=== PATIENT | female | born 1950 | race Hispanic/Latino ===

== ENCOUNTER 2017-06-30 16:00 | Outpatient (CLI) | payer OTHER | END 2017-06-30 16:01 | disposition home or self-care (01) | LOC: BICRAD 16:00 | PROVIDERS: ATTEND Internal Medicine | DX: J45.50 Severe persistent asthma, uncomplicated (principal) | CPT/HCPCS: 71046 ==

== ENCOUNTER 2017-07-03 12:20 | Inpatient (IN) | payer SELFPAY ==
[2017-07-03 13:36] LABS: #Eosinphils 0.3 thou/uL (0.0-0.7); #Lymphocytes 1.3 thou/uL (1.20-3.40); #Monocytes 0.7 thou/uL (0.11-0.59); #Neutrophils 4.7 thou/uL (1.40-6.50); %Basophils 0.6 % (0.0-1.0); %Eosinophils 4.3 % (0.0-10.0); %Monocytes 9.6 % (0.0-10.0); %Neutrophils 67.4 % (42.0-75.0); Hemoglobin 12.8 g/dL (12.0-16.0); Mean Corpuscular HGB CONC 34.4 g/dL (32.0-36.0); Mean Corpuscular Hemoglobin 31.8 pg (27.0-31.0); Mean Corpuscular Volume 92.6 fl (81.0-99.0); Mean Platelet Volume 7.2 fL (7.4-10.4); Platelet Count 222 thou/uL (130-400); RBC Distribution Width 13.6 % (11.5-14.5); Red Blood Cell (RBC) Count 4.02 mill/uL (4.20-5.40)
[2017-07-03 13:58] LABS: Troponin I Less than 0.010 ng/mL (< 0.028)
--- NOTE | 2017-07-03 14:04 | RAD ---
PORTABLE CHEST 1 VIEW: Date: 07/03/17 Time: 1349 hours HISTORY: Cough. FINDINGS: Comparison made with exam of 10/12/13. The heart is enlarged. Chronic changes are again seen. Lungs are expanded without lobar consolidation , pneumothoraces, lynne pulmonary edema, or pleural effusions. There is an old fracture of the right humerus. IMPRESSION: No acute process. POS: [facility]
[2017-07-03 14:08] LABS: ALT (SGPT) 9 U/L (8-55); AST (SGOT) 18 U/L (5-34); Albumin 4.1 g/dL (3.4-4.8); Alkaline Phosphatase 124 U/L (40-150); Anion Gap 11 mmol/L (10-20); BUN (Urea Nitrogen) 19 mg/dL (9.8-20.1); Bilirubin, Total 0.3 mg/dL (0.2-1.2); Calc. Creatinine Clearance 0 mL/min (70-130); Calcium 9.4 mg/dL (7.8-10.44); Carbon Dioxide 28 mmol/L (23-31); Chloride 98 mmol/L (98-107); Estimated GFR-MDRD 69; Globulin 3.2 g/dL (2.4-3.5); Glucose 118 mg/dL (80-115); Potassium 4.2 mmol/L (3.5-5.1); Protein, Total 7.3 g/dL (6.0-8.3); Sodium 133 mmol/L (136-145)
[2017-07-03 14:20] LABS: CK (CPK) 33 U/L (29-168)
[2017-07-03] MEDS ORDERED: Furosemide 40 MG/4 ML VIAL ONE (15:02)
--- NOTE | 2017-07-03 15:45 | HP ---
PRIMARY CARE PHYSICIAN: [facility]. REASON FOR ADMISSION: Sent from [facility] for evaluation of dyspnea. HISTORY OF PRESENT ILLNESS: A 67-year-old female who has history of nonischemic cardiomyopathy who was experiencing increasing shortness of breath and cough. The patient is Yoruba speaking only and patient's daughter who speaks Albanian, who helped me to get history from her. She reports that patient was given empiric antibiotic therapy and Augmentin for presumed pneumonia for her increasing shortness of breath and cough. She did not have any recent upper respiratory infections. She was not having any fever or chills , but she was having cough and shortness of breath on lying down position. She denies any PND. She has mild increasing lower extremity pitting edema and she has nonproductive cough which is not improving with antibiotic therapy. Patient was referred for chest x-ray and subsequently primary care physician told her to go to emergency room for possible fluid in her lungs. Today in the emergency room, she is hypertensive. She is saturating normal on room air and her chest x-ray is unremarkable. Her routine blood test is also unremarkable. Patient is being admitted for mild congestive heart failure exacerbation versus atypical infection. Today in the emergency room, her BNP is also significantly elevated. She denies any pleuritic chest pain. She denies any fever or chills. She denies any hemoptysis. She denies any UTI symptoms. She denies any constipation, diarrhea, melena or hematochezia. PAST MEDICAL HISTORY: Nonischemic cardiomyopathy, hypertension, dyslipidemia, gastroesophageal reflux disease, osteoarthritis, rheumatoid arthritis. PAST SURGICAL HISTORY: Cardiac catheterization in 2014 and bilateral hip replacement. PAST PSYCHIATRIC HISTORY: Reviewed and negative. ALLERGIES: No known drug allergy. CURRENT HOME MEDICATIONS: Bumex 1 mg p.o. daily, Coenzyme Q10 100 mg p.o. daily , Protonix 40 mg p.o. daily, Coreg 25 mg twice daily, Tylenol #3 one tablet q.8 hourly p.r.n., potassium chloride 20 mEq p.o. daily, Imdur 60 mg p.o. daily, Augmentin 875 mg twice daily which was recently prescribed by primary care physician. REVIEW OF SYSTEMS: The following complete review of systems was negative, unless otherwise mentioned in the HPI or below: Constitutional: Weight loss or gain, ability to conduct usual activities. Skin: Rash, itching. Eyes: Double vision, pain. ENT/Mouth: Nose bleeding, neck stiffness, pain, tenderness. Cardiovascular: Palpitations, dyspnea on exertion, orthopnea. Respiratory: Shortness of breath, wheezing, cough, hemoptysis, fever or night sweats. Gastrointestinal: Poor appetite, abdominal pain, heartburn, nausea, vomiting, constipation, or diarrhea. Genitourinary: Urgency, frequency, dysuria, nocturia. Musculoskeletal: Pain, swelling. Neurologic/Psychiatric: Anxiety, depression. Allergy/Immunologic: Skin rash, bleeding tendency. Please see my HPI for pertinent positive and negative. All other review of systems reviewed and negative except as mentioned in the HPI. SOCIAL HISTORY: The patient lives at home with family. No history of tobacco, alcohol or illicit drug abuse. FAMILY HISTORY: No strong family history of premature coronary artery disease, stroke or cancer. EMERGENCY ROOM COURSE: Patient is given Lasix 40 mg. PHYSICAL EXAMINATION: VITAL SIGNS: On arrival, blood pressure 180/51, pulse 79, respiratory rate 20, temperature 98.4, saturation 95% on room air, and weight 52.2 kilograms. GENERAL: Patient is currently alert, awake, hypertensive, no obvious acute distress. HEAD: Normocephalic, atraumatic. EYES: Pupils round, reactive to light. Extraocular muscle intact. ENT: Oropharynx within normal limits. Moist mucous membrane, no oral lesion, no pharyngeal erythema, no exudate. NECK: Supple. Mild elevated JVD noted. No meningeal signs of irritation, no carotid bruit. LUNGS: Bibasilar few rales noted. Few end expiratory wheezing heard. CARDIAC: S1, S2 regular, soft systolic murmur noted at apex. Bilateral lower extremity edema noted. HEART: Regular rhythm. ABDOMEN: Soft, bowel sounds present, nontender, and nondistended. No organomegaly, no mass, no suprapubic tenderness. BACK: Examination unremarkable, no CVA tenderness. EXTREMITIES: Upper extremity passive movements of all joints are normal. Lower extremity, true pitting edema noted. Good distal pulsation. SKIN: No skin rash. HEMATOLOGICAL SYSTEM: No lymphadenopathy. PSYCHIATRIC: Normal affect. NEUROLOGIC: Nonfocal examination. IMAGING DATA AND SIGNIFICANT LABORATORY DATA: 1. EKG showing LVH pattern. 2. Chest x-ray based on my review reported as no acute cardiopulmonary process , cardiomegaly. 3. CBC: WBC 7.2, hemoglobin 12.8, platelets 222. 4. BMP: Sodium 133, potassium 4.2, chloride 98, carbon dioxide 28, BUN 19, creatinine 0.82, glucose 118, calcium 9.4. 5. LFT: AST 18, ALT 9, alkaline phosphatase is 124, albumin 4.0. CK 33, CK- MB 1.0, troponin I less than 0.010, BNP 618.0. ASSESSMENT AND PLAN/IMPRESSION: 1. Acute on chronic congestive heart failure exacerbation, diastolic as well as systolic. Patient's last echocardiography was in 2013. She had negative ischemic workup at that time. We will repeat echocardiography during this admission. We will treat her with Zaroxolyn 5 mg p.o. daily as well as Lasix 40 mg IV b.i.d. We will do serial cardiac enzymes to rule out any underlying acute coronary syndrome. Based on clinical history, patient has mild systolic and diastolic heart failure exacerbation. We will continue Coreg 25 mg p.o. b.i.d., lisinopril 5 mg p.o. b.i.d., and Imdur 60 mg p.o. daily. Fluid restriction 1500 mL per day. We will control better blood pressure during this admission. For benefit of doubt, we will also check for any viral infection. 2. Hypertension, uncontrolled. Continue Lasix, Coreg 25 mg twice daily, lisinopril 5 mg p.o. b.i.d. and Imdur 60 mg p.o. daily. We will adjust blood pressure medication during this admission 3. Gastroesophageal reflux disease. Continue Protonix 40 mg p.o. daily. 4. Osteoarthritis/rheumatoid arthritis with joint deformity. The patient needs symptomatic treatment. 5. Mild hyponatremia, likely related with underlying congestive heart failure. 6. Dyslipidemia. We will check lipid profile tomorrow and start pravastatin 20 mg p.o. at bedtime. 7. Deep venous thrombosis prophylaxis not needed because we are expecting discharge in 24 hours. 8. Gastrointestinal prophylaxis, Protonix 40 mg p.o. daily. 9. Moderate mitral, tricuspid and aortic regurgitation based on previous echo, will need to repeat echo this time. CODE STATUS: The patient is FULL CODE. The patient's daughter is surrogate decision maker. Disposition plan based on clinical course. Plan of care discussed with the patient and family member at bedside in the emergency room. MAIA
[2017-07-03] MEDS ORDERED: Ondansetron ODT 4 MG TAB SL PRN (16:28)
[2017-07-03] MEDS ORDERED: hydrALAZINE 20 MG/ML VIAL SLOW IVP PRN ×2 (16:28→16:57)
[2017-07-03] MEDS ORDERED: Ondansetron HCl/PF 4 MG/2 ML Vial IVP PRN ×2 (16:28→16:57)
[2017-07-03] MEDS ORDERED: Acetaminophen 325 MG TAB PO PRN (16:57)
[2017-07-03] MEDS ORDERED: Ondansetron ODT 4 MG TAB PO PRN (16:57)
[2017-07-03] MEDS ORDERED: Nitroglycerin 0.4 MG TAB (25 Tab Bottle) SL PRN (16:57)
[2017-07-03] MEDS ORDERED: Milk Of Magnesia 30 ML UDCUP PO PRN (16:57)
[2017-07-03] MEDS ORDERED: Loperamide HCl 2 MG CAP PO PRN (16:57)
[2017-07-03] MEDS ORDERED: Eucerin (Mineral Oil/Petrolatum,White) 30 gm Jar TOP PRN (16:57)
[2017-07-03] MEDS ORDERED: Chloraseptic Spray 180 ml Bottle PO PRN (16:57)
[2017-07-03] MEDS ORDERED: Loratadine 10 MG TAB PO PRN (16:57)
[2017-07-03] MEDS ORDERED: HYDROcodone/Acetaminophen 5/325 mg Tablet PO PRN (16:57)
[2017-07-03] MEDS ORDERED: Zolpidem Tartrate 5 MG TAB PO PRN (16:57)
[2017-07-03] MEDS ORDERED: Sodium Chloride 0.65% Nasal 44 ML BOT EA NARE PRN (16:57)
[2017-07-03] MEDS ORDERED: Mag-Al 1200 mg/1200 mg/30 ML UDCUP PO PRN (16:57)
[2017-07-03] MEDS ORDERED: Artificial Tears 18 DROP/0.9 ML EA EYE PRN (16:57)
[2017-07-03] MEDS ORDERED: Senokot 8.6 MG TAB PO PRN (16:57)
[2017-07-03] MEDS ORDERED: Metolazone 5 MG TAB PO SCH (17:15)
[2017-07-03 17:23] LABS: Troponin I 0.017 ng/mL (< 0.028)
[2017-07-03 20:36] LABS: Bilirubin Negative (Negative); Blood, Urine Trace (Negative); Clarity CLEAR (Clear); Glucose, Urine (Dipstick) Negative (Negative); Leukocyte Negative (Negative); Nitrite Negative (Negative); Protein, Urine (Dipstick) Negative (Neg-Trace); Specific Gravity, Urine 1.006 (1.002-1.036); Urobilinogen 0.2 mg/dL (0.2-1.0); pH, Urine 6.5 (5.0-9.0)
[2017-07-03 20:38] LABS: Bacteria/HPF None Seen HPF (None Seen); Hyaline Casts/LPF 0-3 HYALINE CAST LPF (0-3 Hyaline); RBC/HPF 0-3 HPF (0-3); Squamous Epithelial None Seen HPF (0-3); WBC/HPF None Seen HPF (0-3)
[2017-07-03] MEDS ORDERED: Furosemide 40 MG/4 ML VIAL SLOW IVP SCH (21:00)
[2017-07-03 21:10] LABS: Troponin I 0.048 ng/mL (< 0.028)
[2017-07-03] MEDS: Amoxicillin/Potassium Clav 875 MG TAB PO SCH (21:15)
[2017-07-03] MEDS: Pravastatin Sodium 20 MG TAB PO SCH (21:15)
[2017-07-03] MEDS: Lisinopril 5 MG TAB PO SCH (21:15)
[2017-07-03] MEDS: Carvedilol 25 MG TAB PO SCH (21:16)
[2017-07-04 05:48] LABS: #Basophils 0.1 thou/uL (0.0-0.2); #Eosinphils 0.2 thou/uL (0.0-0.7); #Lymphocytes 1.1 thou/uL (1.20-3.40); #Monocytes 0.5 thou/uL (0.11-0.59); #Neutrophils 6.2 thou/uL (1.40-6.50); %Basophils 0.7 % (0.0-1.0); %Eosinophils 2.7 % (0.0-10.0); %Lymphocytes 13.3 % (21.0-51.0); %Monocytes 6.4 % (0.0-10.0); Mean Corpuscular HGB CONC 33.5 g/dL (32.0-36.0); Mean Corpuscular Hemoglobin 30.9 pg (27.0-31.0); Mean Corpuscular Volume 92.2 fl (81.0-99.0); Mean Platelet Volume 7.4 fL (7.4-10.4); Platelet Count 215 thou/uL (130-400); RBC Distribution Width 13.7 % (11.5-14.5); Red Blood Cell (RBC) Count 3.88 mill/uL (4.20-5.40)
[2017-07-04] MEDS ORDERED: Furosemide 40 MG/4 ML VIAL SLOW IVP SCH ×2 (06:00→06:33)
[2017-07-04 06:04] LABS: Anion Gap 13 mmol/L (10-20); BUN (Urea Nitrogen) 27 mg/dL (9.8-20.1); Calc. Creatinine Clearance 52 mL/min (70-130); Calcium 9.2 mg/dL (7.8-10.44); Carbon Dioxide 26 mmol/L (23-31); Cardiac Risk 4.8 (Less than 4.5); Chloride 97 mmol/L (98-107); Cholesterol 187 mg/dl (< 200 Desired); Estimated GFR-MDRD 66; Glucose 125 mg/dL (80-115); HDL Cholesterol 39 mg/dL (>60 Neg Risk); LDL Cholesterol, Calculated 131 mg/dL; Magnesium 1.8 mg/dL (1.6-2.6); Potassium 3.4 mmol/L (3.5-5.1); Sodium 133 mmol/L (136-145); Triglycerides 86 mg/dL (Less than 150); Uric Acid 7.6 mg/dL (2.6-6.0)
[2017-07-04] MEDS ORDERED: Potassium Chloride 20 MEQ TAB PO SCH (06:45)
[2017-07-04] MEDS ORDERED: Furosemide 20 MG/2 ML VIAL SLOW IVP SCH (06:45)
[2017-07-04] MEDS ORDERED: Metolazone 5 MG TAB PO SCH (08:30)
[2017-07-04] MEDS: Leflunomide 10 mg Tablet PO SCH (08:55)
[2017-07-04] MEDS: Saccharomyces boulardii 250 MG CAP PO SCH (08:55)
[2017-07-04] MEDS: Amoxicillin/Potassium Clav 875 MG TAB PO SCH ×2 (08:55→20:24)
[2017-07-04] MEDS: Ubidecarenone 50 MG CAP PO SCH (08:55)
[2017-07-04] MEDS: Aspirin 325 MG TAB PO SCH (08:55)
[2017-07-04] MEDS: Lisinopril 5 MG TAB PO SCH ×2 (08:56→20:25)
[2017-07-04] MEDS: Metolazone 2.5 MG TAB PO SCH (08:56)
[2017-07-04] MEDS: Carvedilol 25 MG TAB PO SCH ×2 (08:57→20:25)
[2017-07-04] MEDS ORDERED: Enoxaparin Sodium 30 MG/0.3 ML SYRINGE SC SCH (09:00)
--- NOTE | 2017-07-04 09:43 | PDOC.PN ---
- Subjective Encounter Start Date: 07/04/17 Encounter Start Time: 07:20 -: old records requested/rev Patient seen and examined for CHF. No new complaints. No overnight events - Objective Resuscitation Status: Resuscitation Status FULL:Full Resuscitation MAR Reviewed: Yes Vital Signs & Weight: Vital Signs (12 hours) Temp Pulse Resp BP Pulse Ox 07/04/17 08:00 98.2 F 75 16 127/59 L 92 L 07/04/17 07:27 97 07/04/17 04:00 98.4 F 80 18 141/65 H 95 07/04/17 00:14 80 07/04/17 00:00 98.4 F 72 20 185/81 H 96 Weight Weight 116 lb 14.4 oz I&O: 07/03/17 07/04/17 07/05/17 06:59 06:59 06:59 Intake Total 100 Output Total 0 Balance 100 Result Diagrams: 07/04/17 05:00 07/04/17 05:00 EKG Reviewed by me: Yes Phys Exam - Physical Examination Constitutional: NAD HEENT: PERRLA, moist MMs, sclera anicteric Neck: no JVD, supple Respiratory: no wheezing, no rhonchi few basal rales Cardiovascular: RRR, no rub SM+ Gastrointestinal: soft, non-tender, no distention, positive bowel sounds Musculoskeletal: no edema, pulses present Neurological: non-focal, normal sensation Lymphatic: no nodes Psychiatric: normal affect, A&O x 3 Skin: no rash, normal turgor Dx/Plan (1) Acute on chronic combined systolic and diastolic ACC/AHA stage C congestive heart failure Code(s): I50.43 - ACUTE ON CHRONIC COMBINED SYSTOLIC AND DIASTOLIC HRT FAIL Status: Acute (2) Hyponatremia Code(s): E87.1 - HYPO-OSMOLALITY AND HYPONATREMIA Status: Acute (3) Hypokalemia Code(s): E87.6 - HYPOKALEMIA Status: Acute (4) Hypertension Code(s): I10 - ESSENTIAL (PRIMARY) HYPERTENSION Status: Chronic (5) Dyslipidemia Code(s): E78.5 - HYPERLIPIDEMIA, UNSPECIFIED Status: Chronic - Plan cont current plan of care, plan discussed w/ family * echocardiography * will reduce diuresis today with lasix 20 mg iv bid and zaroxolyn 2.5 mg po daily * medication reviewed as below * symptomatic treatment * will adjust medication today * expecting discharge tomorrow. Review of Systems - Review of Systems Constitutional: negative: fever, chills, sweats, weakness, malaise, other Eyes: negative: Pain, Vision Change, Conjunctivae Inflammation, Eyelid Inflammation, Redness, Other ENT: negative: Ear Pain, Ear Discharge, Nose Pain, Nose Discharge, Nose Congestion, Mouth Pain, Mouth Swelling, Throat Pain, Throat Swelling, Other Respiratory: Cough, SOB with Excertion. negative: Dry, Shortness of Breath, Hemoptysis, Pleuritic Pain, Sputum, Wheezing Cardiovascular: negative: chest pain, palpitations, orthopnea, paroxysmal nocturnal dyspnea, edema, light headedness, other Gastrointestinal: negative: Nausea, Vomiting, Abdominal Pain, Diarrhea, Constipation, Melena, Hematochezia, Other Genitourinary: negative: Dysuria, Frequency, Incontinence, Hematuria, Retention , Other Musculoskeletal: negative: Neck Pain, Shoulder Pain, Arm Pain, Back Pain, Hand Pain, Leg Pain, Foot Pain, Other Skin: negative: Rash, Lesions, Jeremi, Bruising, Other Neurological: negative: Weakness, Numbness, Incoordination, Change in Speech, Confusion, Seizures, Other - Medications/Allergies Allergies/Adverse Reactions: Allergies Allergy/AdvReac Type Severity Reaction Status Date / Time No Known Allergies Allergy Verified 10/13/13 02:34 Medications: Current Medications Acetaminophen (Tylenol) 650 mg PO Q4H PRN PRN Reason: Headache/Fever or Pain Hydrocodone Bitart/Acetaminophen ([place] 5/325) 1 tab PO Q4H PRN PRN Reason: Moderate Pain (4-6) Al Hydroxide/Mg Hydroxide (Maalox) 30 ml PO Q6H PRN PRN Reason: Heartburn or Indigestion Albuterol/Ipratropium (Duoneb) 3 ml NEB [id number] PRN PRN Reason: SOB &/or Wheezing Amoxicillin/Clavulanate Potassium (Augmentin) 875 mg PO Q12HR [facility] Last Admin: 07/04/17 08:55 Dose: 875 mg Artificial Tears (Tears Naturale) 0 drop EA EYE PRN PRN PRN Reason: Dry Eyes Aspirin (Aspirin) 325 mg PO DAILY [facility] Last Admin: 07/04/17 08:55 Dose: 325 mg Carvedilol (Coreg) 25 mg PO BID [facility] Last Admin: 07/04/17 08:57 Dose: 25 mg Coenzyme Q10 (Coenzyme Q10) 100 mg PO DAILY [facility] Last Admin: 07/04/17 08:55 Dose: 100 mg Enoxaparin Sodium (Lovenox) 30 mg SC 0900 [facility] Last Admin: 07/04/17 08:58 Dose: 30 mg Furosemide (Lasix) 20 mg SLOW IVP 0600,1400 [facility] Guaifenesin (Robitussin Sf) 200 mg PO Q4H PRN PRN Reason: Cough Hydralazine HCl (Apresoline) 10 mg SLOW IVP Q4H PRN PRN Reason: Systolic BP > 180 Last Admin: 07/04/17 00:14 Dose: 10 mg Isosorbide Mononitrate (Imdur) 60 mg PO DAILY [facility] Last Admin: 07/04/17 08:54 Dose: 60 mg Leflunomide (Arava) 20 mg PO DAILY [facility] Last Admin: 07/04/17 08:55 Dose: 20 mg Lisinopril (Zestril) 5 mg PO BID [facility] Last Admin: 07/04/17 08:56 Dose: 5 mg Loperamide HCl (Imodium) 2 mg PO PRN PRN PRN Reason: Diarrhea/Loose Stools Loratadine (Claritin) 10 mg PO DAILYPRN PRN PRN Reason: Sinus Symptoms Magnesium Hydroxide (Milk Of Magnesium) 30 ml PO DAILYPRN PRN PRN Reason: Constipation Metolazone (Zaroxolyn) 2.5 mg PO 0830 [facility] Last Admin: 07/04/17 08:56 Dose: 2.5 mg Mineral Oil/White Petrolatum (Eucerin Cream) 0 gm TOP BIDPRN PRN PRN Reason: Dry Skin Nitroglycerin (Nitrostat) 0.4 mg SL Q5MIN PRN PRN Reason: Chest Pain Ondansetron HCl (Zofran Odt) 4 mg PO Q6H PRN PRN Reason: Nausea/Vomiting Ondansetron HCl (Zofran) 4 mg IVP Q6H PRN PRN Reason: Nausea/Vomiting Pantoprazole Sodium (Protonix) 40 mg PO DAILY [facility] Last Admin: 07/04/17 08:57 Dose: 40 mg Phenol (Chloraseptic [place] 180 Ml Bot) 0 ml PO PRN PRN PRN Reason: Sore Throat Pravastatin Sodium (Pravachol) 20 mg PO HS [facility] Last Admin: 07/03/17 21:15 Dose: 20 mg Saccharomyces Boulardii (Florastor) 250 mg PO DAILY [facility] Last Admin: 07/04/17 08:55 Dose: 250 mg Senna (Senokot) 2 tab PO HSPRN PRN PRN Reason: Constipation Sodium Chloride ([place] Nasal [place] 0.65%) 0 ml EA NARE QIDPRN PRN PRN Reason: Nasal Congestion Sodium Chloride (Flush - Normal Saline) 10 ml IVF Q12HR [facility] Last Admin: 07/04/17 08:59 Dose: 10 ml Sodium Chloride (Flush - Normal Saline) 10 ml IVF PRN PRN PRN Reason: Saline Flush Zolpidem Tartrate (Ambien) 5 mg PO HSPRN PRN PRN Reason: Insomnia
[2017-07-04 10:24] VITALS: BMI 25.2
[2017-07-04] MEDS: Furosemide 20 MG/2 ML VIAL SLOW IVP SCH (13:32)
[2017-07-04] MEDS: Pravastatin Sodium 20 MG TAB PO SCH (20:25)
[2017-07-05] MEDS: Furosemide 20 MG/2 ML VIAL SLOW IVP SCH (05:08)
[2017-07-05] MEDS: Amoxicillin/Potassium Clav 875 MG TAB PO SCH ×2 (08:16→20:28)
[2017-07-05] MEDS: Lisinopril 5 MG TAB PO SCH ×2 (08:16→20:29)
[2017-07-05] MEDS: Metolazone 2.5 MG TAB PO SCH (08:16)
[2017-07-05] MEDS: Carvedilol 25 MG TAB PO SCH ×2 (08:16→20:28)
[2017-07-05] MEDS: Ubidecarenone 50 MG CAP PO SCH (08:17)
[2017-07-05] MEDS: Leflunomide 10 mg Tablet PO SCH (08:17)
[2017-07-05] MEDS: Saccharomyces boulardii 250 MG CAP PO SCH (08:17)
[2017-07-05] MEDS: Aspirin 325 MG TAB PO SCH (08:17)
[2017-07-05] MEDS ORDERED: Enoxaparin Sodium 40 MG/0.4 ML SYRINGE SC SCH (09:00)
--- NOTE | 2017-07-05 10:34 | PDOC.PN ---
- Subjective Encounter Start Date: 07/05/17 Encounter Start Time: 07:50 Patient seen and examined for chf. No new complaints. No overnight events - Objective Resuscitation Status: Resuscitation Status FULL:Full Resuscitation MAR Reviewed: Yes Vital Signs & Weight: Vital Signs (12 hours) Temp Pulse Resp BP BP Pulse Ox 07/05/17 08:15 98.0 F 67 18 145/63 H 93 L 07/05/17 04:45 97.7 F 73 16 147/59 H 94 L Weight Admit Weight 114 lb 9.6 oz Weight 111 lb 1.6 oz I&O: 07/04/17 07/05/17 07/06/17 06:59 06:59 06:59 Intake Total 100 990 Output Total 0 1475 Balance 100 -485 Result Diagrams: 07/04/17 05:00 07/04/17 05:00 EKG Reviewed by me: Yes Phys Exam - Physical Examination Constitutional: NAD HEENT: PERRLA, moist MMs, sclera anicteric Neck: no JVD, supple Respiratory: no wheezing, no rales, no rhonchi Cardiovascular: RRR, no rub SM+ Gastrointestinal: soft, non-tender, no distention, positive bowel sounds Musculoskeletal: no edema, pulses present Neurological: non-focal, normal sensation, moves all 4 limbs Lymphatic: no nodes Psychiatric: normal affect, A&O x 3 Skin: no rash, normal turgor Dx/Plan (1) Acute on chronic combined systolic and diastolic ACC/AHA stage C congestive heart failure Code(s): I50.43 - ACUTE ON CHRONIC COMBINED SYSTOLIC AND DIASTOLIC HRT FAIL Status: Acute (2) Hyponatremia Code(s): E87.1 - HYPO-OSMOLALITY AND HYPONATREMIA Status: Acute (3) Hypokalemia Code(s): E87.6 - HYPOKALEMIA Status: Acute (4) Hypertension Code(s): I10 - ESSENTIAL (PRIMARY) HYPERTENSION Status: Chronic (5) Dyslipidemia Code(s): E78.5 - HYPERLIPIDEMIA, UNSPECIFIED Status: Chronic - Plan cont current plan of care, plan discussed w/ family * repeat labs today * medication reviewed as below * symptomatic treatment * discharge soon. Review of Systems - Review of Systems Eyes: negative: Pain, Vision Change, Conjunctivae Inflammation, Eyelid Inflammation, Redness, Other ENT: negative: Ear Pain, Ear Discharge, Nose Pain, Nose Discharge, Nose Congestion, Mouth Pain, Mouth Swelling, Throat Pain, Throat Swelling, Other Respiratory: negative: Cough, Dry, Shortness of Breath, Hemoptysis, SOB with Excertion, Pleuritic Pain, Sputum, Wheezing Cardiovascular: negative: chest pain, palpitations, orthopnea, paroxysmal nocturnal dyspnea, edema, light headedness, other Gastrointestinal: negative: Nausea, Vomiting, Abdominal Pain, Diarrhea, Constipation, Melena, Hematochezia, Other Genitourinary: negative: Dysuria, Frequency, Incontinence, Hematuria, Retention , Other Musculoskeletal: negative: Neck Pain, Shoulder Pain, Arm Pain, Back Pain, Hand Pain, Leg Pain, Foot Pain, Other - Medications/Allergies Allergies/Adverse Reactions: Allergies Allergy/AdvReac Type Severity Reaction Status Date / Time No Known Allergies Allergy Verified 10/13/13 02:34 Medications: Current Medications Acetaminophen (Tylenol) 650 mg PO Q4H PRN PRN Reason: Headache/Fever or Pain Hydrocodone Bitart/Acetaminophen ([place] 5/325) 1 tab PO Q4H PRN PRN Reason: Moderate Pain (4-6) Al Hydroxide/Mg Hydroxide (Maalox) 30 ml PO Q6H PRN PRN Reason: Heartburn or Indigestion Albuterol/Ipratropium (Duoneb) 3 ml NEB [id number] PRN PRN Reason: SOB &/or Wheezing Amoxicillin/Clavulanate Potassium (Augmentin) 875 mg PO Q12HR [facility] Last Admin: 07/05/17 08:16 Dose: 875 mg Artificial Tears (Tears Naturale) 0 drop EA EYE PRN PRN PRN Reason: Dry Eyes Aspirin (Aspirin) 325 mg PO DAILY [facility] Last Admin: 07/05/17 08:17 Dose: 325 mg Carvedilol (Coreg) 25 mg PO BID [facility] Last Admin: 07/05/17 08:16 Dose: 25 mg Coenzyme Q10 (Coenzyme Q10) 100 mg PO DAILY [facility] Last Admin: 07/05/17 08:17 Dose: 100 mg Enoxaparin Sodium (Lovenox) 40 mg SC 0900 [facility] Last Admin: 07/05/17 08:17 Dose: 40 mg Furosemide (Lasix) 20 mg SLOW IVP 0600,1400 [facility] Last Admin: 07/05/17 05:08 Dose: 20 mg Guaifenesin (Robitussin Sf) 200 mg PO Q4H PRN PRN Reason: Cough Hydralazine HCl (Apresoline) 10 mg SLOW IVP Q4H PRN PRN Reason: Systolic BP > 180 Last Admin: 07/04/17 00:14 Dose: 10 mg Isosorbide Mononitrate (Imdur) 60 mg PO DAILY [facility] Last Admin: 07/05/17 08:16 Dose: 60 mg Leflunomide (Arava) 20 mg PO DAILY [facility] Last Admin: 07/05/17 08:17 Dose: 20 mg Lisinopril (Zestril) 5 mg PO BID [facility] Last Admin: 07/05/17 08:16 Dose: 5 mg Loperamide HCl (Imodium) 2 mg PO PRN PRN PRN Reason: Diarrhea/Loose Stools Loratadine (Claritin) 10 mg PO DAILYPRN PRN PRN Reason: Sinus Symptoms Magnesium Hydroxide (Milk Of Magnesium) 30 ml PO DAILYPRN PRN PRN Reason: Constipation Metolazone (Zaroxolyn) 2.5 mg PO 0830 [facility] Last Admin: 07/05/17 08:16 Dose: 2.5 mg Mineral Oil/White Petrolatum (Eucerin Cream) 0 gm TOP BIDPRN PRN PRN Reason: Dry Skin Nitroglycerin (Nitrostat) 0.4 mg SL Q5MIN PRN PRN Reason: Chest Pain Ondansetron HCl (Zofran Odt) 4 mg PO Q6H PRN PRN Reason: Nausea/Vomiting Ondansetron HCl (Zofran) 4 mg IVP Q6H PRN PRN Reason: Nausea/Vomiting Pantoprazole Sodium (Protonix) 40 mg PO DAILY [facility] Last Admin: 07/05/17 08:16 Dose: 40 mg Phenol (Chloraseptic [place] 180 Ml Bot) 0 ml PO PRN PRN PRN Reason: Sore Throat Pravastatin Sodium (Pravachol) 20 mg PO HS [facility] Last Admin: 07/04/17 20:25 Dose: 20 mg Saccharomyces Boulardii (Florastor) 250 mg PO DAILY [facility] Last Admin: 07/05/17 08:17 Dose: 250 mg Senna (Senokot) 2 tab PO HSPRN PRN PRN Reason: Constipation Sodium Chloride ([place] Nasal [place] 0.65%) 0 ml EA NARE QIDPRN PRN PRN Reason: Nasal Congestion Sodium Chloride (Flush - Normal Saline) 10 ml IVF Q12HR [facility] Last Admin: 07/05/17 08:18 Dose: 10 ml Sodium Chloride (Flush - Normal Saline) 10 ml IVF PRN PRN PRN Reason: Saline Flush Zolpidem Tartrate (Ambien) 5 mg PO HSPRN PRN PRN Reason: Insomnia
[2017-07-05 11:34] LABS: Anion Gap 15 mmol/L (10-20); BUN (Urea Nitrogen) 47 mg/dL (9.8-20.1); Calc. Creatinine Clearance 28 mL/min (70-130); Calcium 9.6 mg/dL (7.8-10.44); Carbon Dioxide 29 mmol/L (23-31); Chloride 95 mmol/L (98-107); Estimated GFR-MDRD 34; Glucose 113 mg/dL (80-115); Magnesium 2.1 mg/dL (1.6-2.6); Potassium 4.4 mmol/L (3.5-5.1); Sodium 135 mmol/L (136-145)
[2017-07-05] MEDS: Diabetic Tussin 200 MG/10 ML UDCUP PO PRN ×2 (12:39→17:50)
[2017-07-05] MEDS: Sodium Chloride 0.9% 500 ML IV SCH ×2 (12:40→21:32)
[2017-07-05] MEDS: Pravastatin Sodium 20 MG TAB PO SCH (20:28)
[2017-07-06 06:12] LABS: Anion Gap 12 mmol/L (10-20); BUN (Urea Nitrogen) 38 mg/dL (9.8-20.1); Calc. Creatinine Clearance 44 mL/min (70-130); Carbon Dioxide 27 mmol/L (23-31); Chloride 94 mmol/L (98-107); Estimated GFR-MDRD 58; Glucose 99 mg/dL (80-115); Magnesium 1.9 mg/dL (1.6-2.6); Potassium 3.9 mmol/L (3.5-5.1); Sodium 129 mmol/L (136-145)
[2017-07-06 07:56] VITALS: BP 155/67; TEMP 98.9
[2017-07-06] MEDS: Amoxicillin/Potassium Clav 875 MG TAB PO SCH (08:03)
[2017-07-06] MEDS: Ubidecarenone 50 MG CAP PO SCH (08:03)
[2017-07-06] MEDS: Aspirin 325 MG TAB PO SCH (08:03)
[2017-07-06] MEDS: Saccharomyces boulardii 250 MG CAP PO SCH (08:04)
[2017-07-06] MEDS: Carvedilol 25 MG TAB PO SCH (08:04)
[2017-07-06] MEDS: Lisinopril 5 MG TAB PO SCH (08:04)
[2017-07-06] MEDS: Leflunomide 10 mg Tablet PO SCH (08:05)
[2017-07-06] MEDS ORDERED: Enoxaparin Sodium 30 MG/0.3 ML SYRINGE SC SCH (09:00)
--- NOTE | 2017-07-06 10:24 | DIS ---
PRIMARY CARE PHYSICIAN: Dr. Breann Gunter DATE OF ADMISSION: 07/03/2017 DATE OF DISCHARGE: 07/06/2017 DISCHARGE DISPOSITION: Home. PRIMARY DISCHARGE DIAGNOSES: 1. Acute on chronic combined systolic and diastolic heart failure exacerbation. 2. Moderate aortic regurgitation. 3. Moderate aortic stenosis. 4. Hypokalemia. 5. Hyponatremia. SECONDARY DISCHARGE DIAGNOSES: Dyslipidemia, hypertension, chronic congestive heart failure with leslie vular heart disease. PRIMARY PROCEDURES/OPERATIONS: None. RADIOLOGICAL INVESTIGATION: Chest x-ray showed pulmonary vascular congestion. Echocardiography show ed EF 50-55% with moderate aortic regurgitation and moderate aortic stenosis and diastolic dysfunctio n. SIGNIFICANT LABORATORY DATA: WBC 8.0, hemoglobin 12.0, platelet 215. Sodium 129, potassium 3.9, BUN 38, creatinine 0.96, calcium 9.0, magnesium 1.9. BNP 188, LDL 131. Urinalysis normal. Respiratory virus panel was positive for rhinovirus infection. DISCHARGE MEDICATIONS: Tylenol #3 one tablet q.6 hourly p.r.n. for pain, aspirin 81 mg p.o. daily, C oreg 25 mg p.o. b.i.d., Lasix 40 mg p.o. daily, Imdur 60 mg p.o. daily, leflunomide 20 mg p.o. daily, lisinopril 5 mg p.o. b.i.d., methotrexate 2.5 mg every 7 days, Protonix 40 mg p.o. daily, potassium chloride 20 mEq p.o. daily, pravastatin 20 mg p.o. at bedtime, Coenzyme Q10 100 mg p.o. daily. CONTRAINDICATIONS: None. CODE STATUS: FULL CODE. INPATIENT CONSULTANTS: None. ALLERGIES: No known drug allergy. DISCHARGE PLAN: Post hospital, the patient will follow up with primary care physician and [facility] and follow up with the Cardiology Clinic as an outpatient basis. HOSPITAL COURSE: A 67-year-old female who was suffering from upper respiratory infection and subsequ ently the patient was having bronchitis symptoms and patient's primary care physician was treating wi maribel Posadas. The patient's respiratory symptoms improved, but she was feeling shortness of breath a nd patient's primary care physician was worried about congestive heart failure and that is why she wa s sent to the ER. Her chest x-ray was negative for any pneumonia, but her clinical presentation was consistent with a congestive heart failure exacerbation. We did echocardiography this admission whic h showed normal EF, and diastolic dysfunction with moderate aortic regurgitation and moderate aortic stenosis. With diuretic therapy within 24-48 hours the patient significantly improved, but with the diuretic therapy the patient developed elevated creatinine and that is why she was given IV fluid ora lly and encouragement of full liquid, with that her kidney failure improved, but her sodium dropped. The patient is currently lying flat without any shortness of breath. The patient is seen and examined at bedside today. VITAL SIGNS: Currently, temperature 98.9, pulse 77, respiratory rate 16, saturation 93% on room air, blood pressure 155/67, weight 110 pounds. GENERAL: The patient is currently alert, awake, no acute distress. HEAD: Normocephalic, atraumatic. EYES: Pupils round, reactive to light. Extraocular muscle intact. ENT: Oropharynx within normal limits. Moist mucous membranes. No oral lesion, no pharyngeal erythe ma, no exudate. NECK: Supple, no JVD. LUNGS: Clear to auscultation. CARDIAC: S1, S2 regular, systolic murmur and diastolic murmur noted. No gallop. ABDOMEN: Soft and benign. EXTREMITIES: No edema. NEUROLOGIC: Nonfocal examination. Plan of care discussed with the patient and family member. The patient wanted to go home today and priscilla ramírez adjusted and changed some medication as above and all new medication prescriptions sent to her phar jesse.
== END 2017-07-06 13:29 | disposition home or self-care (01) | DRG 292 ==
LOC: ERS 12:20 → 2NO 15:10
PROVIDERS: ADMIT Internal Medicine; ATTEND Internal Medicine
DX: I11.0 Hypertensive heart disease with heart failure (principal); E87.1 Hypo-osmolality and hyponatremia; I50.43 Acute on chronic combined systolic (congestive) and diastolic (congestive) heart failure; I42.8 Other cardiomyopathies; E87.6 Hypokalemia; E78.5 Hyperlipidemia, unspecified; K21.9 Gastro-esophageal reflux disease without esophagitis; M19.90 Unspecified osteoarthritis, unspecified site; M06.9 Rheumatoid arthritis, unspecified; I08.3 Combined rheumatic disorders of mitral, aortic and tricuspid valves
CPT/HCPCS: 36415; 71045; 80048; 80053; 80061; 81001; 82553; 83735; 83880; 84484; 84550; 85025; 87633; 87798; 93005; 93306; 93798; 96374; A4216; J0360; J1650; J1940